=== PATIENT | male | born 1990 | race Caucasian/White ===

== ENCOUNTER 2021-07-02 11:44 | Emergency (ER) | payer OTHER ==
[~2021-07-02] VITALS: Ht 177.8 cm; Wt 81.6 kg
--- NOTE | 2021-07-02 11:53 | NUR ---
PT BIB [employer] C/O PT BEING UNCOOPERATIVE,VERBALLY ABUSIVE, PEPPER SPRAYED. PT A/OX4. TOLREATING R/A WELL. [employer] WITH PT.
--- NOTE | 2021-07-02 12:35 | NUR ---
Patient discharged to home in stable condition. Written and verbal after care instructions given. Patient verbalizes understanding of instruction. PT ambulatory with a steady gait. OK TO BOOK
== END 2021-07-02 12:36 ==
LOC: ER 11:55
DX: R45.1 Restlessness and agitation (principal)